=== PATIENT | female | born 1975 | race Caucasian/White ===

== ENCOUNTER 2018-11-28 07:42 | Emergency (ER) | payer OTHER ==
[~2018-11-28] VITALS: Ht 160 cm; Wt 59.0 kg
[2018-11-28] MEDS ORDERED: CIPROFLOXACIN 500 MG TAB PO SCH (07:45)
--- OUTSIDE RECORDS SUMMARY | 2018-11-28 07:45 | XMS REPORT ---
Author Author [facility] Address Unknown Phone Unavailable Care Team Providers Care [facility] [employer] Database Developer Name Role Phone Unavailable Unavailable Payers Payer Name Policy Type Policy Number Effective Date Expiration Date Problems This patient has no known problems. Allergies, Adverse Reactions, Alerts Allergy Name Allergy Type Status Severity Reaction(s) Onset Date Inactive Date Treating Clinician Comments No Known Drug Intolerances DA Active U 2006-04-05 00:00:00 No Known Contrast Allergies DA Active U 2006-04-05 00:00:00 No Known Drug Allergies DA Active U 2006-04-05 00:00:00 No Known Food Allergies DA Active U 2006-04-05 00:00:00 No Known Other Allergies DA Active U 2006-04-05 00:00:00 Medications This patient has no known medications.
[2018-11-28 07:55] VITALS: BP 117/52
== END 2018-11-28 07:57 | disposition home or self-care (01) ==
LOC: ER 07:42
DX: Z20.811 Contact with and (suspected) exposure to meningococcus (principal); Z20.09 Contact with and (suspected) exposure to other intestinal infectious diseases
CPT/HCPCS: 99282

== ENCOUNTER 2019-01-24 13:55 | Outpatient (RCR) | payer BC | END 2019-02-03 | LOC: OT 13:55 | PROVIDERS: ATTEND Orthopaedic Surgery | DX: M77.11 Lateral epicondylitis, right elbow (principal); M25.521 Pain in right elbow; M25.621 Stiffness of right elbow, not elsewhere classified; R53.1 Weakness ==

== ENCOUNTER → 2020-11-06 | Outpatient (CLI) | payer OTHER | LOC: VACCPMC 12:39 | DX: Z23 Encounter for immunization (principal); Z20.822 Contact with and (suspected) exposure to COVID-19 ==

== ENCOUNTER → 2021-01-08 | Day surgery (SDC) | payer BC, OTHER ==
[~2021-01-08] VITALS: Ht 160 cm; Wt 59.0 kg
[~2021-01-08] MED LIST: ACETAMINOPHEN650 MG RC; FENTANYL CITRATE/PF 100MCG/2 ML INJ ONE; GLYCOPYRROLATE INJ 0.2 MG/ML VIAL ONE; IRON; LIDOCAINE HCL 2% LOCAL INJ 5 ML SDV VIAL INJ ONE; MIDAZOLAM HCL 2 MG/2 ML VIAL ONE; ONDANSETRON HCL INJ 2MG/ML 2ML 2 MG/ML VIAL ONE; PROPOFOL IV EMULSION 10 MG/ML 20 ML VIAL ONE; SCOPOLAMINE 1.5 MG PATCH TOP ONE; TYLENOL EXTRA500 MG PO
[2021-01-08 15:20] VITALS: BP 121/70
== END | disposition home or self-care (01) ==
LOC: EDBD 07:50 → OR 07:55 → FSED 09:52 → OR 09:52
PROVIDERS: ATTEND Internal Medicine Gastroenterology
DX: T18.128A Food in esophagus causing other injury, initial encounter (principal); D64.9 Anemia, unspecified; F41.9 Anxiety disorder, unspecified; F98.8 Other specified behavioral and emotional disorders with onset usually occurring in childhood and adolescence; X58.XXXA Exposure to other specified factors, initial encounter; Z20.822 Contact with and (suspected) exposure to COVID-19
CPT/HCPCS: 43247; 70360; 81025; 99282; J2001; J2250; J2405; J2704; J3010; U0002; 45379